=== PATIENT | male | born 1950 | race Two or more races ===

== ENCOUNTER → 2017-08-31 | Outpatient (CLI) | payer MEDICARE ==
--- NOTE | 2017-08-31 15:04 | RAD ---
EXAM: Renal/retroperitonal ultrasound HISTORY: Chronic renal disease. COMPARISON: None. FINDINGS: Ultrasound of the kidneys, bladder and retroperitoneum was performed. The right kidney measures 11.3 cm. Cortical thickness and echogenicity are preserved. There is no hydronephrosis. Small calculi are suspected in the interpolar region measuring 4 mm or less. An anechoic or mostly hypoechoic nodule in the lower pole measures 1.5 x 1.3 cm and mostly represents a cyst. The left kidney measures 12.0 cm. Cortical thickness and echogenicity are preserved. There is no hydronephrosis. Small calculi are suspected in the upper and lower pole measuring <3 mm. An exophytic anechoic or hypoechoic nodule at the lower pole measures 1.7 x 1.4 cm. No internal flow is demonstrated. Images of the bladder reveal no gross abnormality. Neither ureteral jet is visualized currently. IMPRESSION: 1. Mostly anechoic foci and low fluoroscopy pole most likely represent cysts and measure up to 1.7 cm. A follow-up could be performed in 6-12 months if there is persistent concern. 2. Suspect small bilateral renal calculi. No hydronephrosis.
== END | disposition home or self-care (01) ==
LOC: US 13:28
PROVIDERS: ATTEND Internal Medicine Nephrology
DX: N18.2 Chronic kidney disease, stage 2 (mild) (principal)
CPT/HCPCS: 76770

== ENCOUNTER → 2018-07-11 | Outpatient (CLI) | payer MEDICARE ==
[~2018-07-11] MED LIST: GADOBUTROL 7.5 MMOL/7.5 ML VIAL IV ONE
--- NOTE | 2018-07-11 15:42 | RAD ---
Examination: ABDOMEN WO/W CONTRAST History: BLOATING AND INFLAMTION OF ABDOMEN, NO SX HX, NO PRIORS, 7.5ML GADAVIST Comparison/Correlation: None Findings: Multisequence axial and coronal images of the abdomen were obtained. Following 7.5 cc Gadavist IV, imaging was performed at 5 minutes and 7 injection. A hemangioma at the right hepatic dome is small in size measuring 1.5 cm diameter. There is suggestion of another hemangioma at the inferior aspect of the right hepatic lobe measuring less than 1 cm diameter. Multiple nonenhancing lesions involving the liver compatible with cysts are present especially found in the left hepatic dome region. Spleen, pancreas, and adrenal glands are normal. Multiple bilateral renal cysts are present without enhancement. There are no enlarged upper abdominal lymph nodes. There is no upper abdominal ascites. Visualized marrow is unremarkable. Impression: Hepatic and renal cysts. Hepatic hemangioma is present. No suspicious upper abdominal process. Electronically signed by: Guillermo Amanda MD (07/11/2018 3:38 PM) [id number]
== END | disposition home or self-care (01) ==
LOC: MRI 09:57
PROVIDERS: ATTEND Family Medicine
DX: N28.1 Cyst of kidney, acquired (principal); K76.89 Other specified diseases of liver; D18.03 Hemangioma of intra-abdominal structures; N18.2 Chronic kidney disease, stage 2 (mild)
CPT/HCPCS: 74183; A9585

== ENCOUNTER → 2021-01-20 | Outpatient (CLI) | payer MEDICARE, OTHER ==
--- NOTE | 2021-01-20 12:42 | RAD ---
EXAM: US RENAL BILAT 01/20/2021 8:30 AM INDICATION: Renal cyst. COMPARISON: MRI abdomen 07/11/2018 TECHNIQUE: Grayscale and color Doppler ultrasound of the kidneys and bladder. FINDINGS: The right kidney measures 12.4 x 5.6 x 5.8 cm. The left kidney measures 12.5 x 6.0 cm. Renal echoge nicity and cortical thickness are normal. No hydronephrosis. There are bilateral renal cysts. The largest cyst on the right is in the mid kidney measuring 2.3 cm, previously 1.5 cm. The largest on the left is in the inferior left renal pole measuring 1.9 cm, prev iously 1.7 cm. The urinary bladder is incompletely distended and unremarkable. IMPRESSION: Small bilateral renal cysts, corresponding with MRI 07/11/2018. Electronically signed by: Alicia Capone MD (01/20/2021 12:39 PM) [id number]
== END ==
LOC: US 09:41
PROVIDERS: ATTEND Internal Medicine
DX: N28.1 Cyst of kidney, acquired (principal); N32.89 Other specified disorders of bladder
CPT/HCPCS: 76770

== ENCOUNTER → 2022-01-07 | Outpatient (CLI) | payer OTHER ==
--- NOTE | 2022-01-08 13:21 | RAD ---
Exam Date: 01/07/2022 8:12 AM US ABDOMEN COMPLETE Indication: Reason: Hepatic and Renal Cysts seen on US and MRI / Spl. Instructions: / History: . TECHNIQUE: Multiple longitudinal and transverse sonographic images of the abdomen are submitted for interpretation. COMPARISON: Ultrasound from January 20, 2021. MRI from July 11, 2018 FINDINGS: Multiple simple hepatic cysts are seen, the largest measuring 2.0 cm. The liver is otherwise normal in size and echogenicity. The portal vein is patent with hepatopetal flow. No suspicious focal intrahepatic abnormality is seen. The gallbladder is normal, without gallstones, gallbladder wall thickening or pericholecystic fluid. There is no biliary ductal dilatation, with the common bile duct measuring 3 mm. The spleen is normal in size and echogenicity. The visualized abdominal aorta, inferior vena cava an d pancreas are within normal limits. There is no upper abdominal ascites. Multiple simple renal cys ts are seen bilaterally, the largest measuring up to 1.9 cm on the right and 1.7 cm on the left. The kidneys are otherwise normal in appearance, with the right kidney measuring 12.3 cm and the left kid jayden measuring 12.1 cm. IMPRESSION: Hepatic and renal cysts. Otherwise normal exam. Electronically signed by: Arsen Hernandez MD (01/08/2022 1:19 PM) [id number]
== END ==
LOC: US 08:02
PROVIDERS: ATTEND Internal Medicine
DX: N28.1 Cyst of kidney, acquired (principal); K76.89 Other specified diseases of liver
CPT/HCPCS: 76700